=== PATIENT | female | born 1995 | race Caucasian/White ===

== ENCOUNTER 2022-08-08 18:25 | Inpatient (IN) | payer BC ==
[2022-08-07 19:35] VITALS: BP 112/62
[~2022-08-08] VITALS: Ht 172.7 cm; Wt 113.9 kg
--- OUTSIDE RECORDS SUMMARY | 2022-08-08 18:30 | XMS REPORT ---
Author Author [facility] Address Unknown Phone Unavailable Care Team Providers Care Waxer Name Role Phone DEANA CYR Unavailable PROBLEMS No Information ALLERGIES No Information ENCOUNTERS from 1993 to 2022-06-23 Encounter Location Date Provider Diagnosis [facility] [address] [facility] [id number] [address] Jul, DEANA CYR Encounter for immuni zation Z23 IMMUNIZATIONS Vaccine Route Administration Date Status 2nd Dose COVID-19, mRNA, MODERNA, 0.5 mL 2 IM Intramuscular Daniel h 2020 Administered 1st Dose COVID-19, mRNA, MODERNA, 0.5 mL 2020 IM Intramuscular F eb 2020 Administered SOCIAL HISTORY Sex Assigned At : Social History Observation Description Sex Assigned At Unknown REASON FOR REFERRAL No Information VITAL SIGNS No information MEDICATIONS No Information PROCEDURES No Information RESULTS No Results REASON FOR VISIT moderna #2 Goals Section No Information Health Concerns No Information MEDICAL EQUIPMENT No Information MENTAL STATUS No Information FUNCTIONAL STATUS No Information ASSESSMENTS Encounter Date Diagnosis Assessment Notes Treatment Notes Treatm ent Clinical Notes Jul, Encounter for immunization (ICD-10 - Z23 ) PLAN OF TREATMENT No Information Insurance Providers Payer Name Payer Address Payer Phone Insured Name Patient Relati onship to Insured Coverage Start Date Coverage End Date Subscriber Number Group Nu mber [employer] OF [place] [address] [place] [address] Courtney Coburn Self - patient is the insured [id number]
[2022-08-08 19:35] VITALS: BP 112/62
[2022-08-08] MEDS ORDERED: MINERAL OIL 30 ML UDC TOP PRN (20:00)
[2022-08-08] MEDS ORDERED: fentaNYL INJ 100 MCG/2 ML AMP IVP PRN (20:00)
[2022-08-08] MEDS ORDERED: LACTATED RINGERS 1,000 ML IV SCH (20:00)
[2022-08-08 20:55] LABS: BASOPHILS % (AUTO) 0 % (0-10); EOSINOPHILS % (AUTO) 0 % (0-10); HEMATOCRIT 34 % (35-52); HEMOGLOBIN 11.5 g/dL (11.5-16.0); LYMPHOCYTES # (AUTO) 2.6 10^3/uL (1.0-4.0); LYMPHOCYTES % (AUTO) 16 % (12-44); MEAN CORPUSCULAR HEMOGLOBIN 28 pg (25-34); MEAN CORPUSCULAR HGB CONC 34 g/dL (32-36); MEAN CORPUSCULAR VOLUME 82 fL (80-99); MEAN PLATELET VOLUME 9.7 fL (9.0-12.2); MONOCYTES % (AUTO) 6 % (0-12); NEUTROPHILS # (AUTO) 13.2 10^3/uL (1.8-7.8); NEUTROPHILS % (AUTO) 78 % (42-75); PLATELET COUNT 329 10^3/uL (130-400); WHITE BLOOD COUNT 16.9 10^3/uL (4.3-11.0)
[2022-08-08 21:40] VITALS: BP 110/56
[2022-08-08] MEDS: D5 LR IV SOLUTION 1,000 ML IV SCH (21:40)
[2022-08-08] MEDS ORDERED: CATHETER FLUSH 10 ML SYR IV SCH (22:00)
[2022-08-08 22:40] VITALS: BP 114/59
[2022-08-09] VITALS (65 sets, daily range): BP systolic 91–145; BP diastolic 54–83
[2022-08-09] MEDS ORDERED: ACETAMINOPHEN 500 MG TAB (TYLENOL) ONE (01:17)
[2022-08-09] MEDS ORDERED: ACETAMINOPHEN 500 MG TAB (TYLENOL) PO ONE (01:19)
[2022-08-09] MEDS: D5 LR IV SOLUTION 1,000 ML IV SCH ×4 (06:43→22:04)
--- NOTE | 2022-08-09 07:54 | History & Physical-OB/GYN ---
JASMYN ROBERTO 08/09/22 0754: OB - Chief Complaint & HPI Date/Time Date of Admission: Date of Admission: Aug 08, 2022 at 18:25 Date seen by a Provider: Aug 09, 2022 Time Seen by a Provider: 08:00 Chief Complaint/History OB-Reason for Admission/Chief: Induction of Labor Hx : 1 Hx Para: 0 Hx Last Menstrual Period: 10/31/2021 Estimated Date of Conception: 11/14/2021 Expected Date of Delivery: Aug 07, 2022 Gestational Age in Weeks: 40 Gestational Age in Days: 2 Indication for induction: post dates History of Labs O+ Blood, Hep B nonreactive, Hep C nonreactive, Rubella non immune, Trichomonas neg, BV neg, GCC neg, RPR neg Allergies and Home Medications Allergies Coded Allergies: No Known Drug Allergies (Unverified , 08/09/22) Patient Home Medication List Acyclovir (Acyclovir) 400 Mg Tablet, 400 MG PO BID, (Reported) Entered as Reported by: SCAR STONE on 08/09/221718 Last Action: New Order Ferrous Sulfate (Ferosul) 325 Mg (65 Mg Iron) Tablet, 325 MG PO DAILY, (Reported) Entered as Reported by: SCAR STONE on 08/09/221718 Last Action: New Order No.137/Iron/Folic Acd ( Vitamin Tablet) 27 Mg-0.8 Mg Tablet, 1 EACH PO DAILY, (Reported) Entered as Reported by: SCAR STONE on 08/09/221718 Last Action: New Order OB - History Hx of Present Care: Yes Ultrasounds: Abnormal US findings (Small Subchorionic Hemorrhage) Abnormal Ultrasound Findings: US @ 9.1wga: Small (1.9x1.0x0.6cm subchorionic hemorrhage) US @ 21.4wga: unremarkable survey Obstetrical Complications: Other (Anemia Affecting ) Medical Complications: Genitourinary (HSV, Irregular Menses) Information Induced Hypertension: No Obstetrical History Hx : 1 Hx Para: 0 Hx # Term Pregnancies: 0 Hx # Pregnancies: 0 Number of Living Children: 0 Hx Termination: No Hx Multiple Gestation: No Hx Ectopic : No Hx Stillbirth: No Hx Complication: No Hx Induced Hypertens: No Hx Maternal Gestational Diabet: No Hx Hemorrhage: No Delivery History Hx Dystocia: No Hx Forceps Assisted Delivery: No Hx Vacuum Extraction Assisted: No Hx Placenta Abnormality: No Hx Distress: No Hx Large For Gestational Age I: No Hx Small for Gestational Age I: No Hx Section: No Hx Vaginal Delivery Post C-Sec: No Hx Blood Disorders: No Adverse Rxn to Tranfusion: No Patient Past Medical History HSV, Obesity (BMI 38) Maternal Grandmother (breast CA, colon CA, lung CA) Social History/Family History Alcohol Use: Denies Use Recreational Drug Use: No Smoking Cessation: Never smoker 2nd Hand Smoke Exposure: No Immunizations Influenza Vaccine Up-to-Date: Yes; Up-to-Date First/Initial COVID19 Vaccine: 06/25/2020 Second COVID19 Vaccination: 07/24/2020 Third COVID19 Vaccination Date: 04/21/2021 Tetanus Booster (TDap): More than 5yrs RPR/VDRL: Negative GBS Status: Negative HBsAG: Negative OB - Admission Exam Physical Exam Vitals: Vital Signs 08/09/22 08/09/22 02:10 05:50 Temp 36.6 Pulse 72 Resp 16 B/P (MAP) 107/68 (81) O2 Delivery Room Air HEENT: NCAT (PERRLA, Moist Membranes, EOMI) Heart: Rhythm Normal Lungs: Clear Abdomen: Gravid Extremities: Edema (trace edema in lower extremities) Date/Time Contractions Began;: 08/08/2022 Frequency of Contractions: 3-4mins Intensity: Moderate Labs Laboratory Tests Test 08/08/22 20:30 Range/Units White Blood Count 16.9 H 4.3-11.0 10^3/uL Red Blood Count 4.12 3.80-5.11 10^6/uL Hemoglobin 11.5 11.5-16.0 g/dL Hematocrit 34 L 35-52 % Mean Corpuscular Volume 82 80-99 fL Mean Corpuscular Hemoglobin 28 25-34 pg Mean Corpuscular Hemoglobin Concent 34 32-36 g/dL Red Cell Distribution Width 14.4 10.0-14.5 % Platelet Count 329 130-400 10^3/uL Mean Platelet Volume 9.7 9.0-12.2 fL Immature Granulocyte % (Auto) 1 % Neutrophils (%) (Auto) 78 H 42-75 % Lymphocytes (%) (Auto) 16 12-44 % Monocytes (%) (Auto) 6 0-12 % Eosinophils (%) (Auto) 0 0-10 % Basophils (%) (Auto) 0 0-10 % Neutrophils # (Auto) 13.2 H 1.8-7.8 10^3/uL Lymphocytes # (Auto) 2.6 1.0-4.0 10^3/uL Monocytes # (Auto) 1.0 0.0-1.0 10^3/uL Eosinophils # (Auto) 0.0 0.0-0.3 10^3/uL Basophils # (Auto) 0.0 0.0-0.1 10^3/uL Immature Granulocyte # (Auto) 0.1 0.0-0.1 10^3/uL OB - Assessment/Plan/Diagnosis Assessment Assessment: induction of labor Admission Dx Induction of Labor Admission Status: Inpatient Order (span 2 midnights) Reason for Inpatient Admission: Induction of Labor at 40.2 weeks gestational age. O+ Blood, Hep B nonreactive, Hep C nonreactive, Rubella non immune, Trichomonas neg, BV neg, GCC neg, RPR neg Plan Plan: Induction Reason for Induction: Post Date Problems: (1) HSV (herpes simplex virus) anogenital infection (2) Anemia affecting SCAR STONE MD 08/09/221713: Allergies and Home Medications Allergies Coded Allergies: No Known Drug Allergies (Unverified , 08/09/22) Patient Home Medication List Home Medication List Reviewed: Yes Acyclovir (Acyclovir) 400 Mg Tablet, 400 MG PO BID, (Reported) Entered as Reported by: SCAR STONE on 08/09/221718 Last Action: New Order Ferrous Sulfate (Ferosul) 325 Mg (65 Mg Iron) Tablet, 325 MG PO DAILY, (Reported) Entered as Reported by: SCAR STONE on 08/09/221718 Last Action: New Order No.137/Iron/Folic Acd ( Vitamin Tablet) 27 Mg-0.8 Mg Tablet, 1 EACH PO DAILY, (Reported) Entered as Reported by: SCAR STONE on 08/09/221718 Last Action: New Order Supervisory-Addendum Brief Verification & Attestation Participated in pt care: history, MDM, physical Personally performed: exam, history, MDM, supervision of care Care discussed with: Medical Student Procedures: n/a I personally saw and examined patient, did my own exam and directed the plan of care. Admitted for IOL, received cytotec overnight with some change from 2-3 cm this morning. status reassuring with category I tracing. Clear speculum exam done and no herpetic lesions noted. After discussion with patient proceeding with AROM and pitocin for next steps with induction. JASMYN ROBERTO Aug 09, 2022 07:54 SCAR STONE MD Aug 09, 2022 17:14
--- NOTE | 2022-08-09 08:41 | Labor Progress Note ---
Labor Progress Note Labor Progress Note Date Seen by Provider: Aug 09, 2022 Time Seen by Provider: 08:25 Subjective: Pt denies complaints. Objective: Cervical exam: /-3 Consistency: soft Position: anterior Presentation: vertex heart tones: 125 beats per minute, moderate variability, reactive Tocometer: 5 ctx/10 minutes Assessment/Plan: Scar Coburn is a 27 /Para 1 / 0,Gestational Age (wks)40 here for IOL. Has received cytotec x 2 overnight and corie too frequently for another dose. Discussed options of perez bulb for mechanical ripening, pitocin alone or AROM and pitocin, and she preferred AROM with pitocin. Clear speculum exam done due to history of HSV, no lesions external or internal noted and she is asymptomatic. AROM done at time of exam with clear fluid return. CEFM/TOCO Start pitocin Anesthesia: epidural when ready Anticipate vaginal delivery. Vitals - Labs Vital Signs - I&O Vital Signs Date Time Temp Pulse Resp B/P (MAP) Pulse Ox O2 Delivery O2 Flow Rate FiO2 08/09/22 05:50 36.6 72 16 107/68 (81) 08/09/22 02:10 36.4 69 16 110/56 (74) Room Air 08/08/22 22:40 36.4 65 16 114/59 (77) Room Air 08/08/22 21:40 36.4 69 16 110/56 (74) Room Air 08/08/22 19:35 36.4 67 16 112/62 (79) 98 Room Air 08/08/22 19:35 36.4 67 16 98 Room Air Labs Laboratory Tests 08/08/22 20:30: White Blood Count 16.9H, Red Blood Count 4.12, Hemoglobin 11.5, Hematocrit 34L, Mean Corpuscular Volume 82, Mean Corpuscular Hemoglobin 28, Mean Corpuscular Hemoglobin Concent 34, Red Cell Distribution Width 14.4, Platelet Count 329, Mean Platelet Volume 9.7, Immature Granulocyte % (Auto) 1, Neutrophils (%) (Auto) 78H, Lymphocytes (%) (Auto) 16, Monocytes (%) (Auto) 6, Eosinophils (%) (Auto) 0, Basophils (%) (Auto) 0, Neutrophils # (Auto) 13.2H, Lymphocytes # (Auto) 2.6, Monocytes # (Auto) 1.0, Eosinophils # (Auto) 0.0, Basophils # (Auto) 0.0, Immature Granulocyte # (Auto) 0.1 SCAR STONE MD Aug 09, 2022 08:41
[2022-08-09] MEDS ORDERED: OXYTOCIN PRE-MIX DRIP 500 ML IV SCH (09:00)
[2022-08-09] MEDS ORDERED: fentaNYL 2 mcg/ml BUPIVA 0.125 100 ML ONE (09:45)
[2022-08-09] MEDS: fentaNYL 2 mcg/ml BUPIVA 0.125 100 ML EPI SCH ×2 (10:44→18:21)
[2022-08-09] MEDS ORDERED: diphenhydrAMINE 50 MG/ML INJ (BENADRYL) IV PRN (11:00)
[2022-08-09] MEDS ORDERED: METOCLOPRAMIDE INJ 10 MG/2 ML (REGLAN) IV PRN (11:00)
[2022-08-09] MEDS ORDERED: NALOXONE 0.4 MG/ML 1 ML (NARCAN) VIAL IV PRN ×2 (11:00)
[2022-08-09] MEDS ORDERED: ONDANSETRON 4 MG/2 ML (SDV) Z0FRAN IV PRN (11:00)
[2022-08-09] MEDS ORDERED: LACTATED RINGERS 1,000 ML IV SCH (11:00)
[2022-08-09] MEDS: ACETAMINOPHEN 500 MG TAB (TYLENOL) PO PRN ×2 (14:35→22:03)
[2022-08-09] MEDS ORDERED: PREN-164 PO (17:19)
[2022-08-09] MEDS ORDERED: ACYC400T21 PO (17:19)
[2022-08-09] MEDS ORDERED: FERR325T24 PO (17:19)
[2022-08-10] VITALS (49 sets, daily range): BP systolic 100–133; BP diastolic 51–88
[2022-08-10] MEDS: D5 LR IV SOLUTION 1,000 ML IV SCH ×2 (05:28→20:20)
[2022-08-10] MEDS: ACETAMINOPHEN 500 MG TAB (TYLENOL) PO PRN ×2 (05:28→18:14)
[2022-08-10] MEDS: fentaNYL 2 mcg/ml BUPIVA 0.125 100 ML EPI SCH ×2 (06:30→08:49)
--- NOTE | 2022-08-10 08:44 | Labor Progress Note ---
Labor Progress Note Labor Progress Note Date Seen by Provider: Aug 10, 2022 Time Seen by Provider: 07:55 Subjective: Pt denies complaints. Objective: Cervical exam: /+1 Consistency: soft Position: anterior Presentation: vertex heart tones: 140 beats per minute, minimal variability, one variable decel with cervical exam noted Tocometer: 5 ctx/10 minutes Assessment/Plan: Scar Coburn is a (27 /Para 1 / 0,Gestational Age (wks)40 here for induction of labor. Tmax of 100.7, no clearly purulent fluid, no tachycardia. Will check CBC and start antibiotics if WBC above 15. FSE/TOCO Continue pitocin Anesthesia: epidural Anticipate vaginal delivery. Vitals - Labs Vital Signs - I&O Vital Signs Date Time Temp Pulse Resp B/P (MAP) Pulse Ox O2 Delivery O2 Flow Rate FiO2 08/10/22 06:50 93 132/67 (88) 08/10/22 06:34 82 120/61 (80) 08/10/22 06:28 37.9 08/10/22 06:19 85 126/88 (101) 08/10/22 06:04 92 126/67 (86) 08/10/22 05:49 93 129/71 (90) 08/10/22 05:34 93 126/67 (86) 08/10/22 05:19 38.0 82 20 126/65 (85) 08/10/22 05:04 86 122/59 (80) 08/10/22 04:49 78 111/57 (75) 08/10/22 04:34 78 109/56 (73) 08/10/22 04:19 80 103/53 (70) 08/10/22 04:05 80 103/55 (71) 08/10/22 03:49 79 100/55 (70) 08/10/22 03:33 37.8 08/10/22 03:20 87 116/58 (77) 08/10/22 03:05 81 119/57 (77) 08/10/22 02:50 77 108/57 (74) 08/10/22 02:34 37.3 75 20 109/51 (70) 97 Room Air 08/10/22 01:49 38.1 08/10/22 01:10 72 132/69 (90) 08/10/22 01:02 37.9 08/10/22 00:54 83 124/58 (80) 08/10/22 00:39 69 130/60 (83) 08/10/22 00:23 69 131/60 (83) 08/10/22 00:18 38.5 20 Room Air 08/10/22 00:17 38.5 08/10/22 00:09 65 132/60 (84) 08/09/22 23:54 67 130/60 (83) 08/09/22 23:40 68 123/62 (82) 08/09/22 23:25 66 131/66 (87) 08/09/22 23:09 71 134/71 (92) 08/09/22 22:53 66 133/69 (90) 08/09/22 22:38 64 131/68 (89) 08/09/22 22:25 65 123/64 (83) 08/09/22 22:08 67 119/57 (77) 08/09/22 21:53 65 123/61 (81) 08/09/22 21:39 65 116/62 (80) 08/09/22 21:09 67 117/60 (79) 08/09/22 20:54 61 115/59 (77) 08/09/22 20:48 65 99 Room Air 08/09/22 20:39 74 123/60 (81) 08/09/22 20:24 71 116/64 (81) 08/09/22 19:50 72 110/62 (78) 08/09/22 19:36 36.7 08/09/22 19:35 73 115/62 (79) 08/09/22 19:21 74 122/62 (82) 08/09/22 19:06 68 112/68 (83) 08/09/22 18:50 63 18 119/71 (87) Room Air 08/09/22 18:35 67 18 107/73 (84) Room Air 08/09/22 18:20 64 18 105/62 (76) Room Air 08/09/22 18:05 62 18 120/58 (78) Room Air 08/09/22 17:50 62 18 120/60 (80) Room Air 08/09/22 17:20 63 18 124/76 (92) Room Air 08/09/22 17:05 63 18 119/63 (81) Room Air 08/09/22 16:50 63 18 122/66 (84) Room Air 08/09/22 16:35 36.4 61 18 122/68 (86) Room Air 08/09/22 16:20 57 18 112/56 (74) Room Air 08/09/22 16:05 59 18 114/60 (78) Room Air 08/09/22 15:50 59 18 115/57 (76) Room Air 08/09/22 15:35 63 18 123/56 (78) Room Air 08/09/22 15:20 36.4 72 18 115/65 (82) Room Air 08/09/22 15:05 59 18 91/67 (75) Room Air 08/09/22 14:50 70 18 117/54 (75) Room Air 08/09/22 14:35 63 18 120/64 (82) Room Air 08/09/22 14:20 64 18 118/79 (92) Room Air 08/09/22 14:05 64 18 127/75 (92) Room Air 08/09/22 13:50 60 18 120/66 (84) 97 Room Air 08/09/22 13:20 65 18 117/61 (79) 97 Room Air 08/09/22 13:05 61 18 115/56 (75) 97 Room Air 08/09/22 12:50 61 18 128/64 (85) 97 Room Air 08/09/22 12:35 36.5 58 18 117/60 (79) 97 Room Air 08/09/22 12:20 62 18 117/59 (78) 97 Room Air 08/09/22 12:05 63 18 119/60 (79) 97 Room Air 08/09/22 11:35 36.5 68 18 140/70 (93) 97 Room Air 08/09/22 11:25 63 18 135/67 (89) 97 Room Air 08/09/22 11:22 68 18 133/63 (86) 97 Room Air 08/09/22 11:19 83 18 134/60 (84) 97 Room Air 08/09/22 11:16 67 18 122/58 (79) Room Air 08/09/22 11:13 64 18 123/60 (81) 97 Room Air 08/09/22 11:09 64 18 132/62 (85) 96 Room Air 08/09/22 11:06 57 18 132/68 (89) 96 Room Air 08/09/22 11:03 68 18 129/63 (85) Room Air 08/09/22 11:00 62 18 134/63 (86) Room Air 08/09/22 10:57 69 18 132/65 (87) 96 Room Air 08/09/22 10:54 85 18 134/66 (88) 97 Room Air 08/09/22 10:51 65 18 136/70 (92) 97 Room Air 08/09/22 10:48 77 18 142/64 (90) 98 Room Air 08/09/22 10:43 71 18 136/73 (94) 97 Room Air 08/09/22 10:40 73 18 145/83 (103) 99 Room Air 08/09/22 10:35 64 18 139/70 (93) 99 Room Air 08/09/22 10:20 70 18 129/75 (93) 08/09/22 10:05 36.1 68 18 142/72 (95) I & O 08/10/22 07:00 Intake Total 2090 ml Balance 2090 ml SCAR STONE MD Aug 10, 2022 08:44
[2022-08-10 09:09] LABS: BASOPHILS # (AUTO) 0.1 10^3/uL (0.0-0.1); BASOPHILS % (AUTO) 0 % (0-10); EOSINOPHILS % (AUTO) 0 % (0-10); HEMATOCRIT 36 % (35-52); HEMOGLOBIN 12.3 g/dL (11.5-16.0); LYMPHOCYTES # (AUTO) 0.9 10^3/uL (1.0-4.0); LYMPHOCYTES % (AUTO) 2 % (12-44); MEAN CORPUSCULAR HEMOGLOBIN 29 pg (25-34); MEAN CORPUSCULAR HGB CONC 35 g/dL (32-36); MEAN CORPUSCULAR VOLUME 83 fL (80-99); MEAN PLATELET VOLUME 9.8 fL (9.0-12.2); MONOCYTES # (AUTO) 1.9 10^3/uL (0.0-1.0); MONOCYTES % (AUTO) 5 % (0-12); NEUTROPHILS # (AUTO) 34.1 10^3/uL (1.8-7.8); NEUTROPHILS % (AUTO) 91 % (42-75); PLATELET COUNT 265 10^3/uL (130-400)
[2022-08-10 09:11] LABS: WHITE BLOOD COUNT 37.6 10^3/uL (4.3-11.0)
[2022-08-10 09:31] LABS: BAND NEUTROPHILS 19 %; LYMPHOCYTES % (MANUAL) 3 %; MONOCYTES % (MANUAL) 5 %; NEUTROPHILS % (MANUAL) 73 %
[2022-08-10] MEDS ORDERED: WATER (STERILE) FOR INJECTION 20 ML ONE (09:34)
[2022-08-10] MEDS ORDERED: AMPICILLIN 2,000 MG/14.8 ML (IV USE) ONE (09:34)
[2022-08-10] MEDS ORDERED: LIDOCAINE 1% INJ 10 ML VIAL ONE (10:11)
[2022-08-10] MEDS: GENTAMICIN IV SCH (10:33)
[2022-08-10] MEDS: NS IV SCH (10:33)
[2022-08-10] MEDS ORDERED: AMPICILLIN FOR IV USE 2,000 MG in WATER (STERILE) FOR INJECTION 14.8 ML IV SCH (12:00)
--- NOTE | 2022-08-10 13:13 | OB Labor & Delivery Record ---
COURTNEY STONE MD 08/10/22 1313: Vag Delivery Note Vag Delivery Note Date of Delivery: 08/10/22 Preoperative Diagnosis: Courtney Coburn is a (27 /Para 1 / 0, Gestational Age (wks)40with 3 days Postoperative Diagnosis: Same Surgeon: Ioana Mitchell DO Marketing Team Lead: Courtney Stone MD Anesthesia: Epidural Delivery Type: vacuum assisted vaginal delivery Findings: Viable female infant, apgars 5/8, weight 7#5 Lacerations: mediolateral episiotomy Intact placenta with 3 vessel cord. No nuchal cord, body cord or shoulder dystocia Estimated Blood Loss: 250 ml Complications: None Condition: Stable Description of Procedure: The patient is a 27 year old female who presented for induction of labor. She was admitted and informed consent was obtained. Her labor course was remarkable for fever, leukocytosis and prolonged active phase. She was started on ampicillin and gentamicin for suspected chorioamnionitis. She progressed to complete dilatation and began to push. She was then set up for delivery. Good pushing effort was noted but the did not deliver. Throughout pushing, small station was gained but heart r ate increased and remained tachycardic with minimal variability and maternal temperature continued to increase. Maternal exhaustion noted in addition to the previous, and leading edge of skull was at +2/3 station with maternal pushing efforts, so vacuum assisted delivery was discussed and she consented. I emptied her bladder with a straight cath and placed MityVac at 1150, ensuring no vaginal tissue entrapment and with the next contraction increased pressure to the green zone/approximately 50 cmHg. and pulled with handle of MityVac perpendicular to cup with each push, being careful to avoid twisting. Suction was released between contractions. The did not deliver with the first set of push/pulls and with the next contraction, a pop-off occurred at approximately 1200. At that point I asked Dr. Mitchell for a second opinion before replacing vacuum, and he felt Kiwi may be more successful and took over at that point. Kiwi placed at [address] Mitchell. With first set of push/pulls a pop off occurred, and the Kiwi was replaced and mediolateral episiotomy done per Dr. Mitchell and with the next set of pushes, the infant's head was delivered atraumatically in the OA position. The shoulders and remainder of the infant's body were then delivered without difficulty. Delivery time 1216, for a total vacuum application time of approximately 17 minutes. Upon delivery, the cord was doubly clamped and cut and the infant was handed off to the Barista and nursery staff. An intact placenta with 3-vessel cord delivered via [place] and there was found to be minimal bleeding.~ Vigorous fundal massage was performed and the fundus was found to be firm. IV oxytocin was given. Examination of the vagina and perineum revealed a second degree laceration (mediolateral episiotomy) repaired by Dr. Mitchell in the usual fashion with 2-0 and 3-0 vicryl suture. Following the repair, sponge, instrument and needle counts were correct. Mom and baby were both in stable condition in the labor suite. Vitals - Labs Vital Signs - I&O Vital Signs Date Time Temp Pulse Resp B/P (MAP) Pulse Ox O2 Delivery O2 Flow Rate FiO2 08/10/22 08:00 90 18 116/55 (75) Room Air 08/10/22 07:45 88 18 116/59 (78) Room Air 08/10/22 07:30 93 18 120/60 (80) Room Air 08/10/22 07:15 37.2 85 18 133/73 (93) Room Air 08/10/22 06:50 93 132/67 (88) 08/10/22 06:34 82 120/61 (80) 08/10/22 06:28 37.9 08/10/22 06:19 85 126/88 (101) 08/10/22 06:04 92 126/67 (86) 08/10/22 05:49 93 129/71 (90) 08/10/22 05:34 93 126/67 (86) 08/10/22 05:19 38.0 82 20 126/65 (85) 08/10/22 05:04 86 122/59 (80) 08/10/22 04:49 78 111/57 (75) 08/10/22 04:34 78 109/56 (73) 08/10/22 04:19 80 103/53 (70) 08/10/22 04:05 80 103/55 (71) 08/10/22 03:49 79 100/55 (70) 08/10/22 03:33 37.8 08/10/22 03:20 87 116/58 (77) 08/10/22 03:05 81 119/57 (77) 08/10/22 02:50 77 108/57 (74) 08/10/22 02:34 37.3 75 20 109/51 (70) 97 Room Air 08/10/22 01:49 38.1 08/10/22 01:10 72 132/69 (90) 08/10/22 01:02 37.9 08/10/22 00:54 83 124/58 (80) 08/10/22 00:39 69 130/60 (83) 08/10/22 00:23 69 131/60 (83) 08/10/22 00:18 38.5 20 Room Air 08/10/22 00:17 38.5 08/10/22 00:09 65 132/60 (84) 08/09/22 23:54 67 130/60 (83) 08/09/22 23:40 68 123/62 (82) 08/09/22 23:25 66 131/66 (87) 08/09/22 23:09 71 134/71 (92) 08/09/22 22:53 66 133/69 (90) 08/09/22 22:38 64 131/68 (89) 08/09/22 22:25 65 123/64 (83) 08/09/22 22:08 67 119/57 (77) 08/09/22 21:53 65 123/61 (81) 08/09/22 21:39 65 116/62 (80) 08/09/22 21:09 67 117/60 (79) 08/09/22 20:54 61 115/59 (77) 08/09/22 20:48 65 99 Room Air 08/09/22 20:39 74 123/60 (81) 08/09/22 20:24 71 116/64 (81) 08/09/22 19:50 72 110/62 (78) 08/09/22 19:36 36.7 08/09/22 19:35 73 115/62 (79) 08/09/22 19:21 74 122/62 (82) 08/09/22 19:06 68 112/68 (83) 08/09/22 18:50 63 18 119/71 (87) Room Air 08/09/22 18:35 67 18 107/73 (84) Room Air 08/09/22 18:20 64 18 105/62 (76) Room Air 08/09/22 18:05 62 18 120/58 (78) Room Air 08/09/22 17:50 62 18 120/60 (80) Room Air 08/09/22 17:20 63 18 124/76 (92) Room Air 08/09/22 17:05 63 18 119/63 (81) Room Air 08/09/22 16:50 63 18 122/66 (84) Room Air 08/09/22 16:35 36.4 61 18 122/68 (86) Room Air 08/09/22 16:20 57 18 112/56 (74) Room Air 08/09/22 16:05 59 18 114/60 (78) Room Air 08/09/22 15:50 59 18 115/57 (76) Room Air 08/09/22 15:35 63 18 123/56 (78) Room Air 08/09/22 15:20 36.4 72 18 115/65 (82) Room Air 08/09/22 15:05 59 18 91/67 (75) Room Air 08/09/22 14:50 70 18 117/54 (75) Room Air 08/09/22 14:35 63 18 120/64 (82) Room Air 08/09/22 14:20 64 18 118/79 (92) Room Air 08/09/22 14:05 64 18 127/75 (92) Room Air 08/09/22 13:50 60 18 120/66 (84) 97 Room Air 08/09/22 13:20 65 18 117/61 (79) 97 Room Air 08/09/22 13:05 61 18 115/56 (75) 97 Room Air I & O 08/10/22 07:00 Intake Total 2090 ml Balance 2090 ml Labs Laboratory Tests 08/10/22 08:57: White Blood Count 37.6*H, Red Blood Count 4.32, Hemoglobin 12.3, Hematocrit 36, Mean Corpuscular Volume 83, Mean Corpuscular Hemoglobin 29, Mean Corpuscular Hemoglobin Concent 35, Red Cell Distribution Width 14.5, Platelet Count 265, Mean Platelet Volume 9.8, Immature Granulocyte % (Auto) 2, Neutrophils (%) (Auto) 91H, Lymphocytes (%) (Auto) 2L, Monocytes (%) (Auto) 5, Eosinophils (%) (Auto) 0, Basophils (%) (Auto) 0, Neutrophils # (Auto) 34.1H, Lymphocytes # (Auto) 0.9L, Monocytes # (Auto) 1.9H, Eosinophils # (Auto) 0.0, Basophils # (Auto) 0.1, Immature Granulocyte # (Auto) 0.6H, Neutrophils % (Manual) 73, Lymphocytes % (Manual) 3, Monocytes % (Manual) 5, Band Neutrophils 19 IOANA MITCHELL DO 08/10/22 1320: Vag Delivery Note Vag Delivery Note Upon consultation, vertex noted with patient pushing at +2-+[address] Stone had applied a mighty vac, due to angle of delivery I suggested performing low kiwi vaccum extraction. Applied the kiwi cup to the flexion point, applied 550 mmHg using the handpiece, and with next maternal push attempted to extend head with restriction by soft tissue of the perineum, I then performed a RML episiotomy to allow for delivery without instrumental trauma. A pop off also occurred in that process. The next maternal push was however successful and with gentle extension of the head, it was delivered over RML , anterior and posterior shoulders delivered without difficulty and infant placed on maternal abdomen. Dr. Stone then was able to collect cord gases and blood. I repaired with RML using 3-0 and 2-0 vicryl suture in usual fashion. Dr. Stone was left to deliver placenta as I was called to another delivery. COURTNEY STONE MD Aug 10, 2022 13:13 IOANA MITCHELL DO Aug 10, 2022 13:20
[2022-08-10] MEDS ORDERED: MEASLES,MUMPS,RUBELLA 1 EA INJ SQ ONE (13:15)
[2022-08-10] MEDS ORDERED: TETANUS,DIPTH,PERTUSS P/F (BOOSTRIX) 0.5 ML VIAL IM ONE (13:15)
[2022-08-10] MEDS ORDERED: WITCH HAZEL(TUCKS) 40 EA JAR TOP PRN (13:15)
[2022-08-10] MEDS ORDERED: BENZOCAINE/MENTHOL (DERMOPLAST) 56 ML CAN TP PRN (13:15)
[2022-08-10] MEDS: IBUPROFEN 600 MG (MOTRIN) TAB PO SCH ×2 (13:27→20:13)
[2022-08-10] MEDS ORDERED: ONDANSETRON 4 MG/2 ML (SDV) Z0FRAN IVP ONE (16:30)
[2022-08-10] MEDS ORDERED: ONDANSETRON 4 MG/2 ML (SDV) Z0FRAN ONE (16:32)
[2022-08-10] MEDS: AMPICILLIN FOR IV USE 2,000 MG in NS (IVPB) 50 ML IV SCH ×2 (16:55→23:16)
[2022-08-10] MEDS ORDERED: ONDANSETRON 4 MG (ZOFRAN) ORAL DISSOLVE TAB PO PRN (19:45)
[2022-08-10] MEDS: DOCUSATE SODIUM 100 MG (COLACE) CAP PO SCH (20:12)
[2022-08-10] MEDS ORDERED: D5 LR IV SOLUTION 1,000 ML IV ONE (20:19)
[2022-08-10] MEDS ORDERED: D5 LR IV SOLUTION 1,000 ML IV SCH (20:45)
[2022-08-11] MEDS: ACETAMINOPHEN 500 MG TAB (TYLENOL) PO PRN ×2 (00:58→09:49)
[2022-08-11 01:11] VITALS: BP 105/57
[2022-08-11] MEDS: CATHETER FLUSH 10 ML SYR IV SCH ×4 (04:47→21:54)
[2022-08-11] MEDS: AMPICILLIN FOR IV USE 2,000 MG in NS (IVPB) 50 ML IV SCH ×3 (05:05→17:30)
[2022-08-11] MEDS: IBUPROFEN 600 MG (MOTRIN) TAB PO SCH ×4 (05:06→22:45)
[2022-08-11 05:20] VITALS: BP 112/70
[2022-08-11] MEDS: OXYTOCIN PRE-MIX DRIP 500 ML IV SCH ×2 (05:32→05:43)
[2022-08-11 06:45] LABS: BASOPHILS # (AUTO) 0.1 10^3/uL (0.0-0.1); BASOPHILS % (AUTO) 0 % (0-10); EOSINOPHILS # (AUTO) 0.1 10^3/uL (0.0-0.3); EOSINOPHILS % (AUTO) 0 % (0-10); HEMATOCRIT 31 % (35-52); HEMOGLOBIN 10.5 g/dL (11.5-16.0); LYMPHOCYTES # (AUTO) 1.8 10^3/uL (1.0-4.0); LYMPHOCYTES % (AUTO) 6 % (12-44); MEAN CORPUSCULAR HEMOGLOBIN 28 pg (25-34); MEAN CORPUSCULAR HGB CONC 34 g/dL (32-36); MEAN CORPUSCULAR VOLUME 82 fL (80-99); MEAN PLATELET VOLUME 9.9 fL (9.0-12.2); MONOCYTES # (AUTO) 1.4 10^3/uL (0.0-1.0); MONOCYTES % (AUTO) 4 % (0-12); NEUTROPHILS # (AUTO) 27.4 10^3/uL (1.8-7.8); NEUTROPHILS % (AUTO) 88 % (42-75); PLATELET COUNT 252 10^3/uL (130-400)
[2022-08-11 06:50] LABS: WHITE BLOOD COUNT 31.2 10^3/uL (4.3-11.0)
[2022-08-11] MEDS ORDERED: GENTAMICIN (ADULT) INJECTION 0.1 MG in NS (IVPB) 100 ML IV SCH (09:00)
[2022-08-11 09:44] VITALS: BP 97/55
[2022-08-11] MEDS: PRENATAL VITAMIN 1 EA TAB PO SCH (09:47)
[2022-08-11] MEDS: DOCUSATE SODIUM 100 MG (COLACE) CAP PO SCH ×2 (09:47→21:53)
--- NOTE | 2022-08-11 10:20 | Anesthesia-Regional Post-Op ---
Regional Patient Condition Mental Status: Alert, Oriented x3 Circulation: Same as Pre-Op Headache: Absent Sensation: Full Recovery Motor Block: Absent Post Op Complications Complications None Follow Up Care/Instructions Patient Instructions None needed. Anesthesia/Patient Condition Patient is doing well, no complaints, stable vital signs, no apparent adverse anesthesia problems. No complications reported per nursing. OUMOU RUSSELL CRNA Aug 11, 2022 10:20
[2022-08-11] MEDS: NS IV SCH (10:24)
[2022-08-11] MEDS: GENTAMICIN IV SCH (10:24)
--- NOTE | 2022-08-11 10:54 | Postpartum Progress Note ---
JASMYN ROBERTO 08/11/22 1054: Note Note Day # 1 Subjective: Patient endorses abdominal pain. Ambulating and voiding. Tolerating a regular diet without nausea or vomiting. Normal lochia. Pain is well controlled with oral pain medications. Breast feeding. Objective: Patient is lying in bed at time of evaluation, no signs of distress. Physical Exam: General - Alert and oriented, no apparent distress Heart- regular rhythm and rate, no murmurs Lungs- clear to auscultation bilaterally, no rales, wheezing, or rhonchi Abdomen - Soft, tender to palpation though appropriate with choramnionitis, non- distended, fundus firm at umbilicus Extremities - trace lower extremity edema, negative Latoya's bilaterally Assessment: 27F post- day # 1, status post vacuum assisted vaginal delivery. Choramnionitis Plan: Continue Ampicillin and Gentamicin until 24hrs fever free. -Patient afebrile after deilvery since 22MAR @ 1814 -WBC decreased to 31.2 today -continue zofran for nausea Recovering well, hemodynamically stable Routine care. Encourage breast feeding. Encourage ambulation. Ferrous sulfate supplementation. Plan for discharge tomorrow Vitals - Labs Vital Signs - I&O Vital Signs Date Time Temp Pulse Resp B/P (MAP) Pulse Ox O2 Delivery O2 Flow Rate FiO2 08/11/22 09:44 35.5 78 18 97/55 (69) 99 Room Air 08/11/22 05:20 36.5 87 16 112/70 (84) 99 Room Air 08/11/22 01:11 35.9 87 18 105/57 (73) 98 Room Air 08/10/22 20:35 36.5 75 18 107/65 (79) 98 Room Air 08/10/22 18:14 36.1 94 18 112/52 (72) 96 Room Air 08/10/22 14:43 37.9 08/10/22 14:15 88 18 105/53 (70) Room Air 08/10/22 14:00 102 18 117/63 (81) Room Air 08/10/22 13:45 81 18 113/59 (77) Room Air 08/10/22 13:33 37.9 78 18 117/58 (77) Room Air 08/10/22 13:15 94 18 115/57 (76) Room Air 08/10/22 13:13 38.4 08/10/22 13:00 94 18 116/58 (77) Room Air 08/10/22 12:45 78 18 117/64 (81) Room Air 08/10/22 12:30 38.2 78 18 121/64 (83) Room Air 08/10/22 12:05 38.3 08/10/22 12:00 82 18 113/67 (82) Room Air 08/10/22 11:45 89 18 113/72 (86) Room Air 08/10/22 11:30 18 Room Air 08/10/22 11:24 39.0 08/10/22 11:15 18 Room Air 08/10/22 11:00 74 18 112/55 (74) Room Air I & O 08/11/22 07:00 Intake Total 1834.5 ml Output Total 2100 ml Balance -265.5 ml Labs Laboratory Tests 08/11/22 06:11: White Blood Count 31.2*H, Red Blood Count 3.70L, Hemoglobin 10.5L, Hematocrit 31L, Mean Corpuscular Volume 82, Mean Corpuscular Hemoglobin 28, Mean Corpuscular Hemoglobin Concent 34, Red Cell Distribution Width 14.8H, Platelet Count 252, Mean Platelet Volume 9.9, Immature Granulocyte % (Auto) 2, Neutrophils (%) (Auto) 88H, Lymphocytes (%) (Auto) 6L, Monocytes (%) (Auto) 4, Eosinophils (%) (Auto) 0, Basophils (%) (Auto) 0, Neutrophils # (Auto) 27.4H, Lymphocytes # (Auto) 1.8, Monocytes # (Auto) 1.4H, Eosinophils # (Auto) 0.1, Basophils # (Auto) 0.1, Immature Granulocyte # (Auto) 0.5H SCAR STONE MD 08/11/222110: Supervisory-Addendum Brief Supervisory Addendum I personally interviewed and examined patient and confirmed the history documented by the medical student. On my exam, patient alert and in no distress, heart RRR, no murmur, lungs CTAB, fundus firm and moderately tender, 1+ non- pitting edema. I did not check Latoya's sign. Clinical chorioamnionitis improving, last fever at 1313 yesterday. Will d/c antibiotics after 24 hours fever free, recheck CBC in am. Possible d/c tomorrow if vitals, labs and clinical status all reassuring. JASMYN ROBERTO Aug 11, 2022 10:54 SCAR STONE MD Aug 11, 2022 21:11
[2022-08-11] MEDS: FERROUS SULF 325 MG (IRON) TAB PO SCH (12:33)
[2022-08-11 14:17] VITALS: BP 101/64
[2022-08-11 21:51] VITALS: BP 105/54
[2022-08-12] MEDS: ACETAMINOPHEN 500 MG TAB (TYLENOL) PO PRN (00:22)
[2022-08-12 03:51] VITALS: BP 106/59
[2022-08-12] MEDS: IBUPROFEN 600 MG (MOTRIN) TAB PO SCH (03:53)
[2022-08-12 06:05] LABS: HEMATOCRIT 28 % (35-52); HEMOGLOBIN 9.4 g/dL (11.5-16.0); MEAN CORPUSCULAR HEMOGLOBIN 28 pg (25-34); MEAN CORPUSCULAR HGB CONC 34 g/dL (32-36); MEAN CORPUSCULAR VOLUME 83 fL (80-99); MEAN PLATELET VOLUME 9.7 fL (9.0-12.2); PLATELET COUNT 267 10^3/uL (130-400)
--- NOTE | 2022-08-12 07:45 | Discharge Summary ---
Diagnosis/Chief Complaint Date of Admission Aug 08, 2022 at 18:25 Date of Discharge August 12, 2022 Admission Diagnosis Admission Diagnosis 1. Intrauterine at 40 weeks Discharge Diagnosis 1. Intrauterine at 40 weeks gestation 2. Chorioamnionitis 3. Leukocytosis secondary to #2 Chief Complaint/HPI Chief Complaint/HPI 27-year-old 1 now term 1 L1 who initially presented for induction of labor during the evening of August 08, 2021. She was noted to be at 40 weeks 2 days gestation. care was obtained through Dr. Cardoso at [facility] in [place]. Her care essentially was unremarkable. GBS performed at 36 weeks negative. Discharge Summary-OBS Procedures 1. Epidural per anesthesia 2. Suction-assisted vertex vaginal delivery 3. Repair of medial lateral episiotomy Discharge Physical Examination Allergies: Coded Allergies: No Known Drug Allergies (Unverified , 08/09/22) Vitals & I&Os Vital Sign - Last 12Hours Date Time Temp Pulse Resp B/P (MAP) Pulse Ox O2 Delivery O2 Flow Rate FiO2 08/12/22 03:51 36.2 70 16 106/59 (75) 99 Room Air General Appearance: No Acute Distress Respiratory: Clear to Auscultation Cardiovascular: Regular Rate Abdominal: Soft (With uterus showing minimal to no discomfort with massage) Skin: No Rashes Neuro: Normal Speech Hospital Course Was the Problem List Reviewed?: Yes Scar was admitted during the evening of August 08 and she underwent Cytotec 2. In the morning of August 09 she underwent artificial rupture of membranes with Pitocin to follow. She was in labor throughout the entire day of August 09 and ultimately went on to deliver during the late morning of August 10. Delivery was accomplished with suction assistance. Dr. Mitchell was also consulted at this time during delivery. She was also found to have mediolateral episiotomy and this was repaired by Dr. Mitchell. Apgars were 5 at 1 minute and 8 at 5 minutes. weight was 7 lbs. 5 oz. During the course of labor there was tachycardia and this was due to maternal fever. She was also at that time found to have a white blood cell count of 37.6 compared to admission of 16.9. Following delivery she underwent care orders. She was placed on ampicillin and gentamicin due to the fever and leukocytosis. Her white blood cell count on August 11 was noted to be 31.2 and on the morning of August 12, 22.0 which was obviously trending downward. During the afternoon of August 11 the antibiotics were discontinued. She was without any fever throughout the remainder of the next 18 hours. She was ambulatory and eating well. She did report no bowel movement however but we discussed that this will probably happen when she drinks more fluid as well as getting around walking more. She was eager for dismissal as her daughter was transferred to [place] ICU during the afternoon of August 11, 2022 Labs Laboratory Tests 08/12/22 05:54: White Blood Count 22.0H, Red Blood Count 3.35L, Hemoglobin 9.4L, Hematocrit 28L, Mean Corpuscular Volume 83, Mean Corpuscular Hemoglobin 28, Mean Corpuscular Hemoglobin Concent 34, Red Cell Distribution Width 14.7H, Platelet Count 267, Mean Platelet Volume 9.7 Discharge Instructions to patient/family Please see electronic discharge instructions given to patient. Discharge Medications Reviewed and agree with Discharge Medication list on patient's Discharge Instruction sheet Copy Copies To 1: SCAR STONE MD, DANIEL J MD Aug 12, 2022 07:45
[2022-08-12] MEDS ORDERED: IBUP-844 PO (07:55)
[2022-08-12] MEDS ORDERED: DOCU100C37 PO (07:55)
--- NOTE | 2022-08-12 07:58 | Discharge Inst-Women's Service ---
Discharge Inst-Women's Serv Depart Medication/Instructions New, Converted or Re-Newed RX: Transmitted to Pharmacy ([facility] in [facility]) Instructions Continue to monitor yourself for any new fever or any increased vaginal discharge or odor. If so contact [facility]. Follow-up with Dr. Cardoso within the week if any concerns. Your prescriptions for ibuprofen as well as stool softener have been sent to [facility] in [facility]. Problems Reviewed?: Yes Consults/Follow Up Additional Follow Up: Yes (Dr. Cardoso in 6 weeks or sooner if concerns) Activity Activity: Activity as Tolerated Driving Instructions: No Driving for 1 Week Nothing Inside Vagina: No Suarez (For 6 weeks) Diet Discharge Diet: Regular Diet Return to The Hospital For: As below Symptoms to Report to : Swelling Increased, Bleeding Excessive, Pain Increased, Fever Over 101 Degrees F, Vaginal Discharge Foul For Any Problems or Questions: Contact Your Physician CHRISTOS MCINTYRE MD Aug 12, 2022 07:57
[2022-08-12] MEDS: DOCUSATE SODIUM 100 MG (COLACE) CAP PO SCH (08:04)
[2022-08-12] MEDS: PRENATAL VITAMIN 1 EA TAB PO SCH (08:05)
[2022-08-12] MEDS: FERROUS SULF 325 MG (IRON) TAB PO SCH (08:05)
[2022-08-12 08:11] VITALS: BP 118/75
== END 2022-08-12 10:45 | disposition home or self-care (01) | DRG 805 ==
LOC: LDRP 18:25
PROVIDERS: ADMIT Family Medicine; ATTEND Family Medicine
PROC: 10D07Z6 Extraction of Products of Conception, Vacuum, Via Natural or Artificial Opening (ICD-10-PCS; principal; 2022-08-10)
PROC: 10907ZC Drainage of Amniotic Fluid, Therapeutic from Products of Conception, Via Natural or Artificial Opening (ICD-10-PCS; 2022-08-10)
PROC: 3E033VJ Introduction of Other Hormone into Peripheral Vein, Percutaneous Approach (ICD-10-PCS; 2022-08-10)
PROC: 0W8NXZZ Division of Female Perineum, External Approach (ICD-10-PCS; 2022-08-10)
DX: O48.0 Post-term pregnancy (principal); O41.1230 Chorioamnionitis, third trimester, not applicable or unspecified; Z37.0 Single live birth; Z3A.40 40 weeks gestation of pregnancy
CPT/HCPCS: 36415; 85007; 85025; 85027; 86780; 86850; 86900; 86901